=== PATIENT | female | born 1995 | race Caucasian/White ===

== ENCOUNTER 2016-07-25 04:58 | Emergency (ER) | payer BC ==
[~2016-07-25] VITALS: Ht 160 cm; Wt 67.8 kg
[~2016-07-25 04:58] MED LIST: BCPILLS PO
[2016-07-25 05:01] VITALS: TEMP 36.8; Ht 160 cm; Wt 67.8 kg
[2016-07-25] MEDS ORDERED: ONDANSETRON INJ 2 MG/ML 2 ML VIAL IV STA (05:12)
[2016-07-25] MEDS ORDERED: SODIUM CHLORIDE 0.9% 1000ML 1,000 ML IV STA ×2 (05:12→07:10)
[2016-07-25] MEDS ORDERED: MoRPHine SULFATE 10 MG/ML CARP/VIAL IV STA (05:12)
--- NOTE | 2016-07-25 05:21 | EMERGENCY ROOM VISIT NOTE ---
History Report prepared by Chon: Ofelia Roche Under the Supervision of: Dr. Darrin Pascual M.D. First contact with patient: 05:05 Chief Complaint: ABDOMINAL PAIN Stated Complaint: ABD PAIN Nursing Triage Summary: Pt complains of lower abdominal pain since 6pm. +nausea History of Present Illness The patient is a 21 year old female who presents to the Emergency Room with complaints of persistent suprapubic abdominal pain that began around 1800 yesterday. She currently rates her discomfort as a 7/10 in severity. The patient states that all day yesterday she had experienced nausea intermittently , but denies any vomiting. She states that she works at the [employer] and denies any exposure to odd chemicals. The patient denies any burning with urination. She states that her last menstrual cycle was last week. The patient states that she has a NuvaRing but states that she took it out because she was unsure if that was causing her discomfort. She states that her pain is worsened with palpation to the area. The patient notes a history of endometriosis, but denies her discomfort feeling similar to her symptoms with endometriosis. Source of History: patient Onset: 1800 yesterday Position: abdomen (suprapubic) Symptom Intensity: 7/10 Timing: other (persistent) Associated Symptoms: + nausea, No urinary symptoms, No vomiting Review of Systems See HPI for pertinent positives & negatives. A total of 10 systems reviewed and were otherwise negative. Past Medical & Surgical Medical Problems: (1) Endometriosis Surgical Problems: (1) S/P wisdom tooth extraction Family History No pertinent family history stated. Social History Smoking Status: Never Smoker Drug Use: none Marital Status: single Occupation Status: [employer] student Current/Historical Medications No Active Prescriptions or Reported Meds Allergies Coded Allergies: No Known Allergies (Unverified , 07/25/16) Physical Exam Vital Signs Date Time Temp Pulse Resp B/P Pulse Ox O2 Delivery O2 Flow Rate FiO2 07/25/16 07:12 108 20 118/68 100 Room Air 07/25/16 05:01 36.8 118 16 121/83 99 Room Air Physical Exam GENERAL: Patient is in moderate distress, uncomfortable appearing. HEENT: No acute trauma, normocephalic atraumatic, mucous membranes moist, no nasal congestion, no scleral icterus. NECK: No stridor, no adenopathy, no meningismus, trachea is midline. LUNGS: No dyspnea. Clear to auscultation and equal bilaterally. No wheeze, no rhonchi. HEART: Tachycardic rate and regular rhythm. No murmurs, rubs, gallops appreciated. ABDOMEN: Moderate right suprapubic tenderness to palpation, left suprapubic tenderness to palpation. Soft, bowel sounds positive, no masses appreciated, no peritonitis. BACK: No midline tenderness, no CVA tenderness EXTREMITIES: Normal motion all extremities, no cyanosis, no edema. NEUROLOGIC: Alert and oriented, no acute motor or sensory deficits, no focal weakness, cranial nerves grossly intact. SKIN: No rash, no jaundice, no diaphoresis. Medical Decision & Procedures Laboratory Results 07/25/16 05:20 Red Blood Count 4.66, Mean Corpuscular Volume 93.6, Mean Corpuscular Hemoglobin 32.8, Mean Corpuscular Hemoglobin Concent 35.1, Mean Platelet Volume 10.4, Neutrophils (%) (Auto) 79.6, Lymphocytes (%) (Auto) 13.6, Monocytes (%) (Auto) 5.9, Eosinophils (%) (Auto) 0.4, Basophils (%) (Auto) 0.1, Neutrophils # (Auto) 10.98, Lymphocytes # (Auto) 1.88, Monocytes # (Auto) 0.81, Eosinophils # (Auto) 0.06, Basophils # (Auto) 0.02 07/25/16 05:20 Test 07/25/16 05:10 07/25/16 05:12 07/25/16 05:20 Urine Color YELLOW Urine Appearance CLOUDY (CLEAR) Urine pH 6.5 (4.5-7.5) Urine Specific [place] 1.025 (1.000-1.030) Urine Protein NEG (NEG) Urine Glucose (UA) NEG (NEG) Urine Ketones TRACE (NEG) Urine Occult Blood TRACE (NEG) Urine Nitrite NEG (NEG) Urine Bilirubin NEG (NEG) Urine Urobilinogen NEG (NEG) Urine Leukocyte Esterase LARGE (NEG) Urine WBC (Auto) >30 /hpf (0-5) Urine RBC (Auto) 0-4 /hpf (0-4) Urine Hyaline Casts (Auto) 1-5 /lpf (0-5) Urine Epithelial Cells (Auto) >30 /lpf (0-5) Urine Bacteria (Auto) 1+ (NEG) Urine Test NEG (NEG) White Blood Count 13.80 K/uL (4.8-10.8) Red Blood Count 4.66 M/uL (4.2-5.4) Hemoglobin 15.3 g/dL (12.0-16.0) Hematocrit 43.6 % (37-47) Mean Corpuscular Volume 93.6 fL (80-100) Mean Corpuscular Hemoglobin 32.8 pg (25-34) Mean Corpuscular Hemoglobin Concent 35.1 g/dl (32-36) Platelet Count 269 K/uL (130-400) Mean Platelet Volume 10.4 fL (7.4-10.4) Neutrophils (%) (Auto) 79.6 % Lymphocytes (%) (Auto) 13.6 % Monocytes (%) (Auto) 5.9 % Eosinophils (%) (Auto) 0.4 % Basophils (%) (Auto) 0.1 % Neutrophils # (Auto) 10.98 K/uL (1.4-6.5) Lymphocytes # (Auto) 1.88 K/uL (1.2-3.4) Monocytes # (Auto) 0.81 K/uL (0.11-0.59) Eosinophils # (Auto) 0.06 K/uL (0-0.5) Basophils # (Auto) 0.02 K/uL (0-0.2) RDW Standard Deviation 42.8 fL (36.4-46.3) RDW Coefficient of Variation 12.6 % (11.5-14.5) Immature Granulocyte % (Auto) 0.4 % Immature Granulocyte # (Auto) 0.05 K/uL (0.00-0.02) Anion Gap 10.0 mmol/L (3-11) Est Creatinine Clear Calc Drug Dose 96.3 ml/min Estimated GFR () 113.5 Estimated GFR (Non- 98.0 BUN/Creatinine Ratio 12.9 (10-20) Calcium Level 9.3 mg/dl (8.5-10.1) Total Bilirubin 0.6 mg/dl (0.2-1) Direct Bilirubin 0.1 mg/dl (0-0.2) Aspartate Amino Transf (AST/SGOT) 11 U/L (15-37) Alanine Aminotransferase (ALT/SGPT) 20 U/L (12-78) Alkaline Phosphatase 51 U/L (45-117) Total Protein 8.2 gm/dl (6.4-8.2) Albumin 3.9 gm/dl (3.4-5.0) Lipase 106 U/L (73-393) Laboratory results as reviewed by me. Medications Administered Medications (Trade) Dose Ordered Sig/Angelica Route Start Time Stop Time Status Last Admin Dose Admin Morphine Sulfate (MoRPHine SULFATE INJ) 6 mg NOW STAT IV 07/25/16 05:12 07/25/16 05:13 DC 07/25/16 05:19 6 MG Ondansetron HCl 4 mg 4 mg NOW STAT IV 07/25/16 05:12 07/25/16 05:13 DC 07/25/16 05:19 4 MG Sodium Chloride (Nss 1000ml) 1,000 ml @ 999 mls/hr Q1H1M STAT IV 07/25/16 05:12 07/25/16 06:12 DC 07/25/16 05:12 999 MLS/HR Hydromorphone HCl 1 mg 1 mg NOW STAT IV 07/25/16 07:10 07/25/16 07:12 DC 07/25/16 07:18 1 MG Sodium Chloride (Nss 1000ml) 1,000 ml @ 75 mls/hr [id number] STAT IV 07/25/16 07:10 07/25/16 20:29 07/25/16 07:18 75 MLS/HR ED Course 0507: The patient was evaluated in room A12B. A complete history and physical exam was performed. 0512: Ordered Sodium Chloride 1000 ml @ 999 mls/hr IV, Zofran Inj 4 mg IV, Morphine Sulfate 6 mg IV. 0710: I reevaluated the patient and her pain is increasing. I discussed the pros and cons of CT scans and she would like to go ahead with a CT scan. Ordered Sodium Chloride 1000 ml @ 75 mls/hr IV, Dilaudid Inj 1 mg IV. 0715: Ordered Dilaudid Inj 1 mg IV, Zofran Inj 4 mg IV. 0730: The patient was signed out to Dr. Mackenzie at change of shift. Medical Decision Differential: Appendicitis, Ovarian Torsion, PID, Tubo-ovarian Abscess, Intrauterine , Ectopic , Endometriosis, amongst other pathologies entertained. 21 yr old female arrives with acute R>L suprapubic pain. Quite tender to palpation. US unable to see appendix. Ovaries look OK. She has elevated wbc and with continued pain and unable to rule out appy felt CT reasonable. CT w po /iv contrast given age and bmi. She was kept comfortable and rehydrated. UA questionable UTI though symptoms not very much consistent with this. Signed out to Dr Mackenzie awaiting CT results. Impression Primary Impression: Right lower quadrant abdominal pain Scribe Attestation The scribe's documentation has been prepared under my direction and personally reviewed by me in its entirety. I confirm that the note above accurately reflects all work, treatment, procedures, and medical decision making performed by me. Departure Information Dispostion Still a Patient Prescriptions No Active Prescriptions or Reported Meds Referrals [facility] (PCP)
[2016-07-25 05:40] LABS: BASO % 0.1 %; BASO ABS # 0.02 K/uL (0-0.2); COMPLETE YES; EOS % 0.4 %; HEMATOCRIT 43.6 % (37-47); IG% 0.4 %; LYMPH % 13.6 %; LYMPH ABS # 1.88 K/uL (1.2-3.4); MEAN CELL VOLUME 93.6 fL (80-100); MEAN CORPUSCULAR HEMOGLOBIN 32.8 pg (25-34); MEAN CORPUSCULAR HGB CONC 35.1 g/dl (32-36); MEAN PLATELET VOLUME 10.4 fL (7.4-10.4); MONO % 5.9 %; NEUT % 79.6 %; PLATELET COUNT 269 K/uL (130-400); RED BLOOD COUNT 4.66 M/uL (4.2-5.4)
[2016-07-25 06:02] LABS: BUN/CREATININE RATIO 12.9 (10-20); CALCIUM 9.3 mg/dl (8.5-10.1); CREATININE 0.84 mg/dl (0.60-1.20); POTASSIUM 3.8 mmol/L (3.5-5.1)
[2016-07-25 06:04] LABS: MANUAL MICROSCOPIC REQUIRED? NO; REVIEW REQ? NO; URINE APPEARANCE CLOUDY (CLEAR); URINE BILIRUBIN NEG (NEG); URINE COLOR YELLOW; URINE EPITHELIAL CELL AUTO >30 /lpf (0-5); URINE NITRITE NEG (NEG); URINE PH 6.5 (4.5-7.5); URINE SPECIFIC GRAVITY 1.025 (1.000-1.030); UROBILINOGEN NEG (NEG); ZZUR CULT IF INDIC CLEAN CATCH YES
[2016-07-25] MEDS ORDERED: HYDROmorphone INJ 1 MG/ML SYR IV STA (07:10)
--- NOTE | 2016-07-25 07:14 | DIAGNOSTIC IMAGING REPORT ---
ULTRASOUND OF THE APPENDIX CLINICAL HISTORY: Right lower quadrant abdominal pain. COMPARISON STUDY: No priors. FINDINGS: Real-time, grayscale, and color flow sonography of the right lower quadrant was performed to assess for acute appendicitis. The appendix was not discretely visualized. No inflammatory changes or free fluid are seen in the right lower quadrant. No lymphadenopathy was seen. Fluid-filled bowel loops are noted in the right lower quadrant. IMPRESSION: Nonvisualization of the appendix. Note that this does not exclude acute appendicitis. Electronically signed by: Anthony Richmond M.D. 07/25/2016 7:13 AM Dictated Date/Time: 07/25/2016 7:12 AM
[2016-07-25] MEDS ORDERED: ONDANSETRON INJ 2 MG/ML 2 ML VIAL IV PRN (07:15)
[2016-07-25] MEDS ORDERED: HYDROmorphone INJ 1 MG/ML SYR IV PRN (07:15)
--- NOTE | 2016-07-25 07:16 | DIAGNOSTIC IMAGING REPORT ---
ULTRASOUND OF THE PELVIS CLINICAL HISTORY: Right pelvic pain. COMPARISON STUDY: No priors. TECHNIQUE: Real-time, grayscale, and color flow sonography of the pelvis is performed both transabdominally and endovaginally. Images are reviewed in the transverse and longitudinal planes. FINDINGS: Uterus: The uterus is normal in size and echotexture, measuring 7.4 x 2.8 x 3.4 cm. A nabothian cyst is incidentally noted in the cervix. Endometrium: The endometrium is normal in appearance, and the endometrial stripe is normal in thickness measuring up to 0.1 cm. Ovaries: The ovaries are normal in size and morphology. The right ovary measures 2.4 x 1.2 x 3.0 cm and the left ovary measures 1.5 x 1.5 x 2.3 cm. Small follicles are seen bilaterally. Normal Doppler waveforms are shown within both ovaries. Pelvis: There is trace free fluid in the cul-de-sac. No concerning adnexal lesion is seen. IMPRESSION: 1. No acute sonographic abnormality is identified in the pelvis. 2. There is trace free fluid in the cul-de-sac, likely within physiologic limits. Electronically signed by: Anthony Richmond M.D. 07/25/2016 7:15 AM Dictated Date/Time: 07/25/2016 7:13 AM
[2016-07-25] MEDS ORDERED: OPTIRAY 320 IV PRN (07:45)
--- NOTE | 2016-07-25 10:37 | DIAGNOSTIC IMAGING REPORT ---
CT SCAN OF THE ABDOMEN AND PELVIS WITH IV CONTRAST CLINICAL HISTORY: Right lower quadrant abdominal pain. COMPARISON STUDY: Pelvic ultrasound dated 07/25/16. TECHNIQUE: Following the IV administration of 119 cc of Optiray 320, CT scan of the abdomen and pelvis is performed from the lung bases to the proximal femora. Images are reviewed in the axial, sagittal, and coronal planes. IV contrast was administered without complication. Automated dose control exposure was utilized. CT DOSE: 396.02 mGy.cm FINDINGS: Lung bases: The heart is normal in size and without pericardial effusion. The lung bases are clear. Liver: The contrast-enhanced liver is normal in size, contour, and attenuation. There is no intrahepatic biliary ductal dilatation. The hepatic veins and portal veins are patent. Gallbladder: Unremarkable. Spleen: Normal in size and attenuation. Pancreas: Unremarkable. Adrenal glands: Unremarkable. Kidneys: The contrast enhanced kidneys are normal in size and without hydronephrosis. The kidneys enhance symmetrically. Abdominal vasculature: The abdominal aorta is normal in course and caliber. Bowel: The small bowel and colon are normal in course and caliber. The appendix is well-visualized and normal. Peritoneum: There is no intraperitoneal free air or abdominal ascites. There is a small fat-containing umbilical hernia. Lymphadenopathy: None. Pelvic viscera: The bladder, uterus, and adnexa are normal as visualized. There are bilateral ovarian follicles. Trace free fluid is seen in the cul-de-sac. There is nonspecific stranding identified within the pelvic fat, greatest around the cervical region. Skeletal structures: No lytic or blastic lesions are seen. IMPRESSION: 1. There is nonspecific induration and stranding throughout the deep pelvic fat, which could be seen in the setting of pelvic inflammatory disease. Clinical correlation will be required. There is no evidence of abscess. 2. No additional infectious or inflammatory findings are identified. The appendix is well-visualized and normal. Findings were discussed with Dr. Husain in the emergency department at the time of interpretation. Electronically signed by: Anthony Richmond M.D. 07/25/2016 10:36 AM Dictated Date/Time: 07/25/2016 10:29 AM
[2016-07-25] MEDS ORDERED: CEFTRIAXONE SOD INJ 1 GM ADDVIAL IV STA (11:15)
[2016-07-25] MEDS ORDERED: DOXYCYCLINE HYCLATE 100 MG CAP PO STA (11:15)
[2016-07-25] MEDS ORDERED: OXYC1TAB3 PO (12:04)
[2016-07-25] MEDS ORDERED: DOXY100C2 PO (12:04)
[2016-07-25 13:06] VITALS: BP 118/70; PULSE 117; O2SAT 98
--- NOTE | 2016-07-25 15:50 | EMERGENCY ROOM VISIT NOTE ---
ED Visit Note This patient was signed out to me by Dr. Pascual at shift change. At that point, a CAT scan was pending rule out appendicitis and evaluated patient. she was comfortable that she has moderate tenderness mostly centrally in the lower abdomen and shows an elevated white count. I did a call from the radiologist who feels her appendix is normal and she has findings which she feels could be consistent with PID. In light of this, I did do a pelvic exam in the presence of a female nurse senior loan processor. She does have a moderate amount of yellowish discharge. She does seem to have cervical motion tenderness when the speculum was inserted in light of this and will treat her for PID. She was given Rocephin 1 g IV as well as doxycycline 100 mg by mouth here she was sent home with a prescription for doxycycline 100 mg twice a day for 14 days for pain .she can use OxyIR 5 mg, one or 2 pills every 4-6 hours as needed. She was warned that this could make her drowsy and do not take before drinking, driving , working. He feels up to going home. I encourage her return over the weekend if: increasing pain, worsening of symptoms, not tolerating fluids, any concerns. I also recommended close [facility] with [facility] on Thursday for recheck. She is happy with the plan and discharged to home.
[2016-07-27 02:49] LABS: CHLAMYDIA TRACH RNA*** NOT DETECTED (NOT DETECTED); GC (NEIS GONORRHOEAE)RNA** DETECTED (NOT DETECTED)
== END 2016-07-25 13:07 | disposition home or self-care (01) ==
LOC: C.EDB 04:59 → C.EDA 13:07
DX: N73.9 Female pelvic inflammatory disease, unspecified (principal); D72.829 Elevated white blood cell count, unspecified

== ENCOUNTER 2016-12-14 13:16 | Emergency (ER) | payer BC ==
[~2016-12-14] VITALS: Ht 160 cm; Wt 72.3 kg
[~2016-12-14 13:16] MED LIST changes: -BCPILLS PO; +DOXY100C2 PO; +OXYC1TAB3 PO
[2016-12-14 13:19] VITALS: TEMP 36.8; Ht 160 cm; Wt 72.3 kg
[2016-12-14] MEDS ORDERED: LAMO25TA PO (14:04)
[2016-12-14] MEDS ORDERED: BCPILLS PO (14:04)
[2016-12-14 14:10] LABS: BASO % 0.6 %; BASO ABS # 0.04 K/uL (0-0.2); EOS % 2.3 %; HEMATOCRIT 40.8 % (37-47); IG% 0.2 %; LYMPH % 33.1 %; LYMPH ABS # 2.12 K/uL (1.2-3.4); MEAN CELL VOLUME 95.6 fL (80-100); MEAN CORPUSCULAR HEMOGLOBIN 33.3 pg (25-34); MEAN CORPUSCULAR HGB CONC 34.8 g/dl (32-36); MEAN PLATELET VOLUME 10.3 fL (7.4-10.4); MONO % 10.1 %; NEUT % 53.7 %; PLATELET COUNT 278 K/uL (130-400); RED BLOOD COUNT 4.27 M/uL (4.2-5.4); WHITE BLOOD COUNT 6.41 K/uL (4.8-10.8)
[2016-12-14 14:28] LABS: ALT/SGPT 22 U/L (12-78); BLOOD UREA NITROGEN 8 mg/dl (7-18); BUN/CREATININE RATIO 9.1 (10-20); CALCIUM 8.6 mg/dl (8.5-10.1); CARBON DIOXIDE 27 mmol/L (21-32); CHLORIDE 106 mmol/L (98-107); CREATININE 0.85 mg/dl (0.60-1.20); GLUCOSE 70 mg/dl (70-99); POTASSIUM 3.8 mmol/L (3.5-5.1); SODIUM 141 mmol/L (136-145)
[2016-12-14 14:31] LABS: ALKALINE PHOSPHATASE 41 U/L (45-117); AST/SGOT 15 U/L (15-37)
[2016-12-14 14:54] LABS: COMPLETE YES
[2016-12-14 15:22] LABS: URINE APPEARANCE CLEAR (CLEAR); URINE BILIRUBIN NEG (NEG); URINE COLOR YELLOW; URINE NITRITE NEG (NEG); UROBILINOGEN NEG (NEG); ZZUR CULT IF INDIC CLEAN CATCH YES
[2016-12-14 15:26] LABS: MANUAL MICROSCOPIC REQUIRED? NO; REVIEW REQ? NO; SULFASALICYLIC ACID POS (NEG)
[2016-12-14] MEDS ORDERED: CEPH500C PO (16:17)
[2016-12-14 16:23] VITALS: BP 120/77; PULSE 70; O2SAT 100
[2016-12-14] MEDS ORDERED: CEPHALEXIN MONOHYDRATE 250 MG CAP PO ONE (16:30)
--- NOTE | 2016-12-14 18:03 | EMERGENCY ROOM VISIT NOTE ---
History Report prepared by Chon: Danielle Ascencio Under the Supervision of: Dr. Theo Gonzales D.O. First contact with patient: 13:37 Chief Complaint: ED VAG BLEEDING Stated Complaint: MENSTRUAL BLEEDING X 22 DAYS History of Present Illness The patient is a 21 year old female who presents to the Emergency Room with complaints of constant vaginal bleeding beginning 25 days ago. The patient states that she switched her control about 3 weeks ago after having nausea on her previous control, 30mg Apri. She reports that she had her period 4 weeks ago and when she switched her control she has continued to bleed though. She notes that she has 3 pills left to take in the pack. The patient states that she has been going through about 2 pads a day and cannot use tampons because she feels like she has a UTI. She notes a history of UTIs, chlamydia, and endometriosis. She reports that she is sexually active. The patient complains of pain with urination. Pt denies headache, fevers, chest pain , shortness of breath, nausea, vomiting, diarrhea, pain with urination, vaginal discharge. She reports that she told her primary care doctor about the bleeding but he is out for the week. Source of History: patient Onset: 25 days ago Position: other (vaginal) Symptom Intensity: 2 pads a day Quality: other (bleeding) Timing: constant Associated Symptoms: + urinary symptoms, No fevers, No headache, No chest pain, No SOB, No nausea, No vomiting, No diarrhea Note: Pt denies any vaginal discharge. Review of Systems See HPI for pertinent positives & negatives. A total of 10 systems reviewed and were otherwise negative. Past Medical & Surgical Medical Problems: (1) Endometriosis Surgical Problems: (1) S/P wisdom tooth extraction Family History No pertinent family history stated. Social History Smoking Status: Never Smoker Drug Use: none Marital Status: single Housing Status: lives with roommate Occupation Status: [employer] student Current/Historical Medications Scheduled Control Pills ( Control Pills), 1 TAB PO DAILY Cephalexin Monohydrate (Keflex), 500 MG PO QID Lamotrigine (Lamictal), 25 MG PO HS Allergies Coded Allergies: No Known Allergies (Unverified , 07/25/16) Physical Exam Vital Signs Date Time Temp Pulse Resp B/P (MAP) Pulse Ox O2 Delivery O2 Flow Rate FiO2 12/14/16 16:23 70 16 120/77 100 6/25/17 15:12 73 15 118/65 100 Room Air 12/14/16 13:19 36.8 87 18 120/76 100 Room Air Physical Exam GENERAL: sitting up in bed, alert, well appearing, well nourished, no distress, non-toxic EYE EXAM: normal conjunctiva OROPHARYNX: no exudate, no erythema, lips, buccal mucosa, and tongue normal and mucous membranes are moist NECK: supple, no nuchal rigidity, no adenopathy, non-tender LUNGS: Clear to auscultation. Normal chest wall mechanics HEART: no murmurs, S1 normal and S2 normal ABDOMEN: abdomen soft, non-tender, normo-active bowel sounds, no masses, no rebound or guarding. BACK: Back is symmetrical on inspection and there is no deformity, no midline tenderness, no CVA tenderness. SKIN: no rashes and no bruising UPPER EXTREMITIES: upper extremities are grossly normal. LOWER EXTREMITIES: No pitting edema. NEURO EXAM: Normal sensorium, cranial nerves II-XII grossly intact, normal speech, no gross weakness of arms, no gross weakness of legs. : Normal external vaginal mucosa with small amount of dried blood in the vault , no current bleeding, unable to visualize the cervix secondary to discomfort. Normal eternal genitalia Medical Decision & Procedures Laboratory Results 12/14/16 13:55 Red Blood Count 4.27, Mean Corpuscular Volume 95.6, Mean Corpuscular Hemoglobin 33.3, Mean Corpuscular Hemoglobin Concent 34.8, Mean Platelet Volume 10.3, Neutrophils (%) (Auto) 53.7, Lymphocytes (%) (Auto) 33.1, Monocytes (%) (Auto) 10.1, Eosinophils (%) (Auto) 2.3, Basophils (%) (Auto) 0.6, Neutrophils # (Auto ) 3.44, Lymphocytes # (Auto) 2.12, Monocytes # (Auto) 0.65, Eosinophils # (Auto ) 0.15, Basophils # (Auto) 0.04 12/14/16 13:55 Test 12/14/16 13:55 12/14/16 15:03 White Blood Count 6.41 K/uL (4.8-10.8) Red Blood Count 4.27 M/uL (4.2-5.4) Hemoglobin 14.2 g/dL (12.0-16.0) Hematocrit 40.8 % (37-47) Mean Corpuscular Volume 95.6 fL (80-100) Mean Corpuscular Hemoglobin 33.3 pg (25-34) Mean Corpuscular Hemoglobin Concent 34.8 g/dl (32-36) Platelet Count 278 K/uL (130-400) Mean Platelet Volume 10.3 fL (7.4-10.4) Neutrophils (%) (Auto) 53.7 % Lymphocytes (%) (Auto) 33.1 % Monocytes (%) (Auto) 10.1 % Eosinophils (%) (Auto) 2.3 % Basophils (%) (Auto) 0.6 % Neutrophils # (Auto) 3.44 K/uL (1.4-6.5) Lymphocytes # (Auto) 2.12 K/uL (1.2-3.4) Monocytes # (Auto) 0.65 K/uL (0.11-0.59) Eosinophils # (Auto) 0.15 K/uL (0-0.5) Basophils # (Auto) 0.04 K/uL (0-0.2) RDW Standard Deviation 47.5 fL (36.4-46.3) RDW Coefficient of Variation 13.6 % (11.5-14.5) Immature Granulocyte % (Auto) 0.2 % Immature Granulocyte # (Auto) 0.01 K/uL (0.00-0.02) Red Blood Cell Morphology Unremarkable Anion Gap 8.0 mmol/L (3-11) Est Creatinine Clear Calc Drug Dose 98.1 ml/min Estimated GFR () 111.9 Estimated GFR (Non- 96.6 BUN/Creatinine Ratio 9.1 (10-20) Calcium Level 8.6 mg/dl (8.5-10.1) Total Bilirubin 0.3 mg/dl (0.2-1) Direct Bilirubin < 0.1 mg/dl (0-0.2) Aspartate Amino Transf (AST/SGOT) 15 U/L (15-37) Alanine Aminotransferase (ALT/SGPT) 22 U/L (12-78) Alkaline Phosphatase 41 U/L (45-117) Total Protein 7.7 gm/dl (6.4-8.2) Albumin 3.7 gm/dl (3.4-5.0) Lipase 122 U/L (73-393) Urine Color YELLOW Urine Appearance CLEAR (CLEAR) Urine pH 8.0 (4.5-7.5) Urine Specific [place] 1.020 (1.000-1.030) Urine Protein 2+ (NEG) Urine Glucose (UA) NEG (NEG) Urine Ketones NEG (NEG) Urine Occult Blood 3+ (NEG) Urine Nitrite NEG (NEG) Urine Bilirubin NEG (NEG) Urine Urobilinogen NEG (NEG) Urine Leukocyte Esterase SMALL (NEG) Urine WBC (Auto) >30 /hpf (0-5) Urine RBC (Auto) >30 /hpf (0-4) Urine Hyaline Casts (Auto) 10-30 /lpf (0-5) Urine Epithelial Cells (Auto) 10-20 /lpf (0-5) Urine Bacteria (Auto) NEG (NEG) Urine Test NEG (NEG) Laboratory results per my review. Medications Administered Medications (Trade) Dose Ordered Sig/Angelica Route Start Time Stop Time Status Last Admin Dose Admin Cephalexin Monohydrate (Keflex Cap) 500 mg NOW ONCE PO 12/14/16 16:30 12/14/16 16:31 DC 12/14/16 16:22 500 MG ED Course ED COURSE: Vital signs were reviewed and normal The patients medical record was reviewed The above diagnostic studies were performed and reviewed. ED treatments and interventions as stated above. 1337: The patient was evaluated in room C9. A complete history and physical examination was performed. 1608: I spoke to Dr. Gooden of [facility]. He recommended follow up with PCP on Thursday. 1618: Upon reevaluation, the patient is doing well.I discussed my findings with the patient and she understands and agrees with the treatment plan. Based on the patients age, coexisting illnesses, exam and lab findings the decision to treat as an outpatient was made. The patient remained stable while under my care. The patient appeared well at the time of discharge. Medical Decision Differential diagnoses includes but is not limited to appendicitis, diverticulitis, small bowel obstruction, malignancy, hernia, urinary tract infection, torsion, and ectopic , perforation, trauma, infectious. Medication Reconciliation: I attest that I have personally reviewed the patient' s current medication list. Blood pressure screening: Patient was found to have normal blood pressure on screening and does not require follow-up. Patient is a 21-year-old female who presents the ER for vaginal bleeding that has been present for the past month. She recently switched controls and has been having bleeding course the past month. Labs show a hemoglobin of 14. BMP along with bilirubin, lipase and LFTs was unremarkable. UA was contaminated with multiple epithelial cells. She did complain of increased urinary frequency, urgency and dysuria. She was treated for UTI. Urine was negative. She has no abdominal pain on my exam. Discussed case with Dr. Gooden and he agrees with having the patient follow-up on Thursday with her prescribing host hostess at [facility]. Discussed with Pt concerning signs and symptoms to watch out for. Pt was instructed to follow up with their PCP and discussed with the patient their option to return to the ED at anytime for persistent or worsening symptoms. The appropriate anticipatory guidance and out- patient management, including indications for return to the emergency department , were explained at length to the patient and understood. Consults Time Called: 1605 Consulting Physician: Dr. Gooden - [facility] Returned Call: [address] Gooden of [facility]. He recommended follow up with PCP on Thursday. Impression Primary Impression: Dysfunctional uterine bleeding Additional Impression: UTI (urinary tract infection) Scribe Attestation The scribe's documentation has been prepared under my direction and personally reviewed by me in its entirety. I confirm that the note above accurately reflects all work, treatment, procedures, and medical decision making performed by me. Departure Information Dispostion Home / Self-Care Prescriptions Cephalexin Monohydrate (Keflex) 500 Mg Cap 500 MG PO QID, #32 CAP Prov: Theo Gonzales, DO 12/14/16 Referrals No Doctor, Assigned (PCP) Forms HOME CARE DOCUMENTATION FORM, IMPORTANT VISIT INFORMATION, WORK / SCHOOL INSTRUCTIONS Patient Instructions ED Bleed Irregular Vaginal, My [facility] [employer] Additional Instructions Please follow up with your primary care doctor with in the next 24 hours. Any worsening of your symptoms, please return to the ED immediately. This includes going through more than 1 pad an hour, feeling lightheaded, dizzy, pain, new or a change vaginal discharge, or any other concerning signs or symptoms from your standpoint. Please follow up with your [facility] host hostess within 24-48 hours. Problem Qualifiers Additional Impression: UTI (urinary tract infection) Urinary tract infection type: acute cystitis Hematuria presence: with hematuria Qualified Codes: N30.01 - Acute cystitis with hematuria
== END 2016-12-14 16:26 | disposition home or self-care (01) ==
LOC: C.EDB 13:19 → C.EDC 16:26
DX: N93.8 Other specified abnormal uterine and vaginal bleeding (principal); N30.01 Acute cystitis with hematuria; N80.9 Endometriosis, unspecified; Z87.440 Personal history of urinary (tract) infections; Z98.818 Other dental procedure status

== ENCOUNTER 2017-05-08 12:20 | Emergency (ER) | payer BC ==
[~2017-05-08] VITALS: Ht 160 cm; Wt 73.6 kg
[~2017-05-08 12:20] MED LIST changes: +BCPILLS PO; +CEPH500C PO; -DOXY100C2 PO; +LAMO25TA PO; -OXYC1TAB3 PO
[2017-05-08 12:25] VITALS: TEMP 36.8; Ht 160 cm; Wt 73.6 kg
[2017-05-08] MEDS ORDERED: SERT-234 PO (13:01)
--- NOTE | 2017-05-08 14:13 | DIAGNOSTIC IMAGING REPORT ---
CHEST 2 VIEWS ROUTINE HISTORY: 21 years-old Female PRODUCTIVE COUGH acute productive cough COMPARISON: None available TECHNIQUE: 2 views of the chest FINDINGS: Cardiomediastinal and hilar silhouettes are within normal limits. No pneumothorax, pleural effusion, focal airspace consolidation or overt pulmonary edema. The bones of the chest are grossly intact. IMPRESSION: No acute cardiopulmonary process. The above report was generated using voice recognition software. It may contain grammatical, syntax or spelling errors. Electronically signed by: Jarad Guillory M.D. 05/08/2017 2:12 PM Dictated Date/Time: 05/08/2017 2:08 PM
[2017-05-08] MEDS ORDERED: ALBUTEROL HFA 8 GM INHALER INH ONE (14:45)
[2017-05-08] MEDS ORDERED: PRED50TA PO (14:50)
[2017-05-08] MEDS ORDERED: AZITTAB PO (14:50)
--- NOTE | 2017-05-08 14:53 | EMERGENCY ROOM VISIT NOTE ---
ED Visit Note First contact with patient: 12:30 CHIEF COMPLAINT: Cough and upper respiratory symptoms 3 weeks HISTORY OF PRESENT ILLNESS: Patient is a 21-year-old white female who presents to the emergency department for evaluation of upper respiratory symptoms that have been present and progressively getting worse over the last 3 weeks. Her symptoms started about 3 weeks ago with a sore throat, that resolved on its own. One week ago, she then had a roughly 24 hour period of subjective fever and chills and body and muscle aches. She took acetaminophen for this, and felt better the following morning. She then developed sinus and nasal congestion and a cough that is mostly nonproductive. She notes a mild generalized headache, fatigue, and bilateral rib pain. She tried using over-the -counter medications including a saline spray, without relief. She has not had any further fevers. She denies any chest pain. Cough is worse at night, and first thing in the morning when she wakes up. 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 She does not smoke. She denies any shortness of breath. REVIEW OF SYSTEMS: Review of systems as per HPI. All other systems reviewed were negative. 10 systems reviewed. PMH: Electronic medical records are reviewed and summarized as above/below. See Problem List. SOCIAL HISTORY: Patient lives at home. Nonsmoker. She is employed. PHYSICAL EXAM: Vital Signs: Reviewed Nurse's notes. MENTAL STATUS: Patient is a well-appearing 21-year-old white female who is awake and alert and in no acute distress. Vital signs are stable. Oxygen saturation is 97% on room air. No coughing noted during the entire history or physical exam. HEAD: Atraumatic, without temporal or scalp tenderness. EYES: PERRL, EOMI, no discharge or injection. EARS: Tympanic membranes intact, not inflamed, have normal contour. External canals clear. NOSE: Nares patent, turbinates moist without rhinorrhea. MOUTH: Mucous membranes moist, no lesions, tongue and gums appear normal. THROAT: No pharyngeal injection, exudates, or tonsillar hypertrophy. Airway is patent. NECK: Supple, nontender, no lymphadenopathy. HEART: Regular rate and rhythm without murmurs, ectopy, gallops, or rubs. LUNGS: Clear to auscultation and breath sounds equal, no wheezes, rales, or rhonchi. SKIN: Normal. NEUROLOGICAL: Sensory and motor functions grossly intact. Normal gait. EMERGENCY DEPARTMENT COURSE: Chest x-ray was obtained and was unremarkable. Conservative care measures were discussed. She's had upper respiratory symptoms for about a week. She reports a fairly persistent cough however no coughing is noted during her entire ED visit with the provider is in the room. There is no increased work of breathing or respiratory distress. No further fevers. I suspect her illness is still likely viral at this point, particularly given the negative chest x-ray. She was given an albuterol inhaler with a spacer. She was also placed on a short course of oral prednisone. She can continue using [id number] medications for symptomatic care. If her symptoms are not improving in the next week, she was provided a prescription for a Z-Matthew that she can fill and take. Differential diagnoses include upper respiratory illness, postnasal drip, sinusitis, pharyngitis, bronchitis, pneumonia, among others. Medication reconciliation: I attest that I have personally reviewed the patient' s current medication list. Blood pressure screening : Patient was found to have normal blood pressure on screening and does not require follow-up. CHEST 2 VIEWS ROUTINE HISTORY: 21 years-old Female PRODUCTIVE COUGH acute productive cough COMPARISON: None available TECHNIQUE: 2 views of the chest FINDINGS: Cardiomediastinal and hilar silhouettes are within normal limits. No pneumothorax, pleural effusion, focal airspace consolidation or overt pulmonary edema. The bones of the chest are grossly intact. IMPRESSION: No acute cardiopulmonary process. Problem List Medical Problems: (1) Anxiety Status: Chronic (2) Bipolar disorder Status: Chronic (3) Dysfunctional uterine bleeding Status: Resolved (4) Dysfunctional uterine bleeding Status: Resolved (5) Endometriosis Status: Chronic (6) Facial injury Status: Resolved (7) Head injury Status: Resolved (8) Right lower quadrant abdominal pain Status: Resolved (9) Scalp abrasion Status: Resolved (10) UTI (urinary tract infection) Status: Resolved (11) UTI (urinary tract infection) Status: Resolved Surgical Problems: (1) H/O laparoscopy Status: Resolved (2) S/P wisdom tooth extraction Status: Resolved Current/Historical Medications Scheduled Azithromycin (Zithromax Z-Matthew), 0 PO UD Control Pills ( Control Pills), 1 TAB PO DAILY Lamotrigine (Lamictal), 75 MG PO HS Prednisone (Prednisone), 50 MG PO DAILY Sertraline (Zoloft), 100 MG PO QAM Allergies Coded Allergies: No Known Allergies (Unverified , 05/08/17) Vital Signs Date Time Temp Pulse Resp B/P (MAP) Pulse Ox O2 Delivery O2 Flow Rate FiO2 05/08/17 15:04 65 18 116/62 100 05/08/17 14:31 68 18 116/70 100 Room Air 05/08/17 12:48 Room Air 05/08/17 12:29 97 Room Air 05/08/17 12:25 36.8 88 18 122/77 97 Room Air Laboratory Results Test 05/08/17 13:25 Urine Test NEG (NEG) Medications Administered Medications (Trade) Dose Ordered Sig/Angelica Route Start Time Stop Time Status Last Admin Dose Admin Albuterol (Ventolin Hfa Inhaler) 2 puffs NOW ONCE INH 05/08/17 14:45 05/08/17 14:46 DC 05/08/17 14:58 2 PUFFS Departure Information Impression Primary Impression: Upper respiratory infection Prescriptions Azithromycin (ZITHROMAX Z-MATTHEW) 250 Mg Tab 0 PO UD, #1 PKT 2 TABS DAY 1, THEN 1 TAB DAILY FOR 4 DAYS Prov: Tamar Mckeon PA 05/08/17 Prednisone (Prednisone) 50 Mg Tab 50 MG PO DAILY for 5 Days, #5 TAB Prov: Tamar Mckeon PA 05/08/17 Referrals [facility] (PCP) Patient Instructions [facility] Additional Instructions Acetaminophen(Tylenol) may be used for fever or pain. Use 1000mg every six hours as needed. Avoid using more than 3000mg in a 24 hour period. (AND/OR) Ibuprofen(Motrin, Advil) may be used for fever or pain. Use 600mg every six hours as needed. Take with food. Avoid using more than 2400mg in a 24 hour period. Do not use 2400mg per day for more than three consecutive days without physician direction. Prolonged inappropriate use can lead to stomach upset or ulcers. Pseudoephedrine(Sudaphed): 30-60mg every 6 hours as needed for nasal congestion. Do not take this with other stimulant products or supplements. Guaifenesin (Mucinex) : Take 1200 mg every 12 hours as needed for nasal/chest congestion, to help thin secretions. Albuterol Inhaler: Take 2 puffs every 4 hours for the next 5-7 days, then as needed. Prednisone 50mg: Once daily until the prescription is finished. It is best to take this earlier in the day as some patients note occasional difficulty falling asleep when taken in the late evening. Rest and drink plenty of fluids. Continue current medications. Return to the ER for severe headache, neck stiffness, chest pain, difficulty breathing, fevers, vomiting, worsening of your condition, or as needed. Follow up with your primary physician this week for a recheck of your current condition. If your symptoms are not improving in the next 5-7 days, fill and take the prescription for the Z-Matthew as instructed.
[2017-05-08 15:04] VITALS: BP 116/62; PULSE 65; O2SAT 100
== END 2017-05-08 15:06 | disposition home or self-care (01) ==
LOC: C.EDB 12:23 → C.EDC 15:06
DX: J06.9 Acute upper respiratory infection, unspecified (principal); F41.9 Anxiety disorder, unspecified; F31.9 Bipolar disorder, unspecified; Z87.440 Personal history of urinary (tract) infections; Z79.3 Long term (current) use of hormonal contraceptives; Z79.899 Other long term (current) drug therapy

== ENCOUNTER 2017-06-01 21:25 | Emergency (ER) | payer BC ==
[~2017-06-01] VITALS: Ht 160 cm; Wt 72.1 kg
[~2017-06-01 21:25] MED LIST changes: -CEPH500C PO; +SERT-234 PO
[2017-06-01 21:30] VITALS: BP 124/78; TEMP 36.8; Ht 160 cm; Wt 72.1 kg
[2017-06-01 22:33] LABS: BASO % 0.3 %; BASO ABS # 0.02 K/uL (0-0.2); COMPLETE YES; EOS % 3.6 %; IG% 0.2 %; LYMPH % 34.1 %; LYMPH ABS # 2.27 K/uL (1.2-3.4); MEAN CELL VOLUME 96.5 fL (80-100); MEAN CORPUSCULAR HEMOGLOBIN 32.7 pg (25-34); MEAN CORPUSCULAR HGB CONC 33.8 g/dl (32-36); MEAN PLATELET VOLUME 10.4 fL (7.4-10.4); MONO % 6.5 %; NEUT % 55.3 %; PLATELET COUNT 214 K/uL (130-400); RED BLOOD COUNT 4.04 M/uL (4.2-5.4); WHITE BLOOD COUNT 6.65 K/uL (4.8-10.8)
--- NOTE | 2017-06-01 22:36 | DIAGNOSTIC IMAGING REPORT ---
TWO VIEW CHEST CLINICAL HISTORY: Atypical chest pain. Cough 2 months duration. Dyspnea. FINDINGS: PA and lateral chest radiographs are compared to study dated 05/08/2017. The cardiomediastinal silhouette is unremarkable. The lungs and pleural spaces are clear. There is no pneumothorax. The bony thorax appears intact. Bilateral nipple piercings are noted. IMPRESSION: No active disease in the chest. Electronically signed by: Anthony Richmond M.D. 06/01/2017 10:34 PM Dictated Date/Time: 06/01/2017 10:34 PM
[2017-06-01 22:40] VITALS: O2SAT 92
[2017-06-01 22:50] LABS: ALT/SGPT 21 U/L (12-78); BLOOD UREA NITROGEN 10 mg/dl (7-18); BUN/CREATININE RATIO 12.3 (10-20); CALCIUM 8.7 mg/dl (8.5-10.1); CARBON DIOXIDE 29 mmol/L (21-32); CHLORIDE 105 mmol/L (98-107); CREATININE 0.78 mg/dl (0.60-1.20); GLUCOSE 94 mg/dl (70-99); POTASSIUM 3.6 mmol/L (3.5-5.1); SODIUM 138 mmol/L (136-145)
[2017-06-01 22:51] LABS: PARTIAL THROMBOPLASTIN RATIO 1.1; PROTHROMBIN TIME (PATIENT) 10.7 SECONDS (9.0-12.0)
[2017-06-01 22:53] LABS: ALKALINE PHOSPHATASE 45 U/L (45-117); AST/SGOT 13 U/L (15-37)
[2017-06-01] MEDS ORDERED: BENZ1CAP90 PO (23:08)
[2017-06-01] MEDS ORDERED: TRAM-10 PO (23:08)
[2017-06-01] MEDS ORDERED: HYDR5SYP11 PO (23:08)
--- NOTE | 2017-06-01 23:12 | EMERGENCY ROOM VISIT NOTE ---
History First contact with patient: 21:34 Chief Complaint: RIB PAIN Stated Complaint: R RIB PAIN History of Present Illness The patient is a 22 year old female who presents to the Emergency Room with complaints of persistent nonproductive cough, shortness of breath, fatigue and chest/rib pain, mostly over the right chest wall. The patient reports that she has been sick for the past 2 months. She was here on 05/08/17 and diagnosed with bronchitis. She was provided a prescription for prednisone and albuterol inhaler. She was also given a prescription for a Z-Matthew which she started shortly thereafter because of worsening symptoms. The patient reports that the steroids did provide some relief for a few days, then symptoms came back. The albuterol inhaler was not helping with her symptoms. She was seen 2 days ago at [facility] and provided another prescription for a Z- Matthew and inhaler, and again has had no significant symptoms relief. She has had notable fatigue over the past week. She thinks that her rib pain is from persistent coughing. The patient denies any history of asthma or other pulmonary conditions. She denies any abdominal pain, urinary symptoms or diarrhea. She has had mild nausea and poor appetite. She rates her rib discomfort a 7 out of 10. Review of Systems HEENT: Denies dizziness, visual problems, hearing loss, tinnitus. Denies difficulty swallowing or oral lesions. PULMONARY: See history of present illness. CARDIOVASCULAR: Denies palpitations, dyspnea on exertion, orthopnea or peripheral edema. GASTROINTESTINAL: Denies diarrhea, constipation, vomiting or abdominal pain. GENITOURINARY: Denies dysuria, frequency, urgency or nocturia. NEUROLOGIC: Denies history of epilepsy, CVA, TIA or chronic headaches. MUSCULOSKELETAL: Denies history of joint tenderness/swelling. SKIN: Denies rashes or lesions. PSYCHIATRIC: Denies history of depression or mental illness. ENDOCRINE: Denies history of diabetes or thyroid disorders. Past Medical/Surgical History Medical Problems: (1) Anxiety (2) Bipolar disorder (3) Dysfunctional uterine bleeding (4) Dysfunctional uterine bleeding (5) Endometriosis (6) Facial injury (7) Head injury (8) Right lower quadrant abdominal pain (9) Scalp abrasion (10) UTI (urinary tract infection) (11) UTI (urinary tract infection) Surgical Problems: (1) H/O laparoscopy (2) S/P wisdom tooth extraction Family History FH: cancer FH: diabetes mellitus FH: heart disease FH: hypertension FH: seizures Social History Smoking Status: Never Smoker Alcohol Use: none Drug Use: none Marital Status: single Housing Status: lives with roommate Occupation Status: employed, [employer] student Current/Historical Medications Scheduled Control Pills ( Control Pills), 1 TAB PO DAILY Lamotrigine (Lamictal), 75 MG PO HS Sertraline (Zoloft), 100 MG PO QAM Scheduled PRN Benzonatate (Tessalon Perles), 200 MG PO TID PRN for Cough Hydrocodone W/ Homatropine (Hycodan 5/1.5MG 5 Ml), 5-10 ML PO Q4H PRN for Cough Tramadol (Ultram), 1-2 TAB PO Q4H PRN for Pain Physical Exam Vital Signs Date Time Temp Pulse Resp B/P (MAP) Pulse Ox O2 Delivery O2 Flow Rate FiO2 06/01/17 22:41 83 06/01/17 22:40 92 Room Air 06/01/17 21:30 36.8 92 20 124/78 100 Room Air Physical Exam CONSTITUTIONAL: Healthy and well nourished. Alert and oriented X 3 with positive affect. Patient does not appear acutely or toxic, nor did she appear in any acute respiratory distress. HEENT: Normocephalic, atraumatic. Pupils equal, round and reactive. Ears and nares are clear. No rhinorrhea noted. No scleral icterus or conjunctival injection. NECK: Full active range of motion without discomfort. No nuchal rigidity, Kernig's or Brudzinski sign. LYMPHATICS: The patient has mild posterior cervical chain adenopathy with no anterior adenopathy noted. RESPIRATORY: Clear to auscultation bilaterally with no wheezing, crackles, rhonchi or stridor. CARDIOVASCULAR: Regular rate and rhythm with no murmurs, rubs or gallops. GASTROINTESTINAL: Bowel sounds present in all quadrants. Soft and nontender to palpation. No hepatosplenomegaly. MUSCULOSKELETAL: Full range of motion of all joints without discomfort. INTEGUMENTARY: No rash or other significant dermatologic conditions noted. HEMATOLOGIC: No ecchymosis or petechiae noted. NEUROLOGIC: No focal neurologic deficits noted. Medical Decision & Procedures ER Provider Diagnostic Interpretation: My interpretation of an ECG shows a normal sinus rhythm of [address] elevation or other conduction abnormalities. My interpretation of a two-view chest x-ray does not show any consolidations, pneumothorax or widened mediastinum. Radiologist report is as follows: TWO VIEW CHEST CLINICAL HISTORY: Atypical chest pain. Cough 2 months duration. Dyspnea. FINDINGS: PA and lateral chest radiographs are compared to study dated 05/08/2017. The cardiomediastinal silhouette is unremarkable. The lungs and pleural spaces are clear. There is no pneumothorax. The bony thorax appears intact. Bilateral nipple piercings are noted. IMPRESSION: No active disease in the chest. Laboratory Results 06/01/17 22:15 Red Blood Count 4.04, Mean Corpuscular Volume 96.5, Mean Corpuscular Hemoglobin 32.7, Mean Corpuscular Hemoglobin Concent 33.8, Mean Platelet Volume 10.4, Neutrophils (%) (Auto) 55.3, Lymphocytes (%) (Auto) 34.1, Monocytes (%) (Auto) 6.5, Eosinophils (%) (Auto) 3.6, Basophils (%) (Auto) 0.3, Neutrophils # (Auto) 3.68, Lymphocytes # (Auto) 2.27, Monocytes # (Auto) 0.43, Eosinophils # (Auto) 0.24, Basophils # (Auto) 0.02 06/01/17 22:15 Test 06/01/17 22:15 White Blood Count 6.65 K/uL (4.8-10.8) Red Blood Count 4.04 M/uL (4.2-5.4) Hemoglobin 13.2 g/dL (12.0-16.0) Hematocrit 39.0 % (37-47) Mean Corpuscular Volume 96.5 fL (80-100) Mean Corpuscular Hemoglobin 32.7 pg (25-34) Mean Corpuscular Hemoglobin Concent 33.8 g/dl (32-36) Platelet Count 214 K/uL (130-400) Mean Platelet Volume 10.4 fL (7.4-10.4) Neutrophils (%) (Auto) 55.3 % Lymphocytes (%) (Auto) 34.1 % Monocytes (%) (Auto) 6.5 % Eosinophils (%) (Auto) 3.6 % Basophils (%) (Auto) 0.3 % Neutrophils # (Auto) 3.68 K/uL (1.4-6.5) Lymphocytes # (Auto) 2.27 K/uL (1.2-3.4) Monocytes # (Auto) 0.43 K/uL (0.11-0.59) Eosinophils # (Auto) 0.24 K/uL (0-0.5) Basophils # (Auto) 0.02 K/uL (0-0.2) RDW Standard Deviation 47.7 fL (36.4-46.3) RDW Coefficient of Variation 13.5 % (11.5-14.5) Immature Granulocyte % (Auto) 0.2 % Immature Granulocyte # (Auto) 0.01 K/uL (0.00-0.02) Prothrombin Time 10.7 SECONDS (9.0-12.0) Prothromb Time International Ratio 1.0 (0.9-1.1) Activated Partial Thromboplast Time 27.7 SECONDS (21.0-31.0) Partial Thromboplastin Ratio 1.1 D-Dimer < 190 ug/L FEU (0-500) Anion Gap 4.0 mmol/L (3-11) Est Creatinine Clear Calc Drug Dose 105.8 ml/min Estimated GFR () 123.3 Estimated GFR (Non- 106.4 BUN/Creatinine Ratio 12.3 (10-20) Calcium Level 8.7 mg/dl (8.5-10.1) Total Bilirubin 0.3 mg/dl (0.2-1) Direct Bilirubin < 0.1 mg/dl (0-0.2) Aspartate Amino Transf (AST/SGOT) 13 U/L (15-37) Alanine Aminotransferase (ALT/SGPT) 21 U/L (12-78) Alkaline Phosphatase 45 U/L (45-117) Total Creatine Kinase 74 U/L (26-192) Total Protein 7.1 gm/dl (6.4-8.2) Albumin 3.5 gm/dl (3.4-5.0) Lipase 146 U/L (73-393) Monoscreen NEG (NEG) The above labs were reviewed and were normal. [facility] screen is negative. D- dimer is normal. ED Course Patient history and physical exam were performed. Nurse's notes were reviewed. Vital signs were reviewed, showing that the patient is afebrile and normotensive. O2 saturation is 100% on room air. The patient is not tachycardic. The patient does not appear in any acute distress. As the patient has had symptoms for 2 months without any significant relief, this questions other possible etiologies besides upper respiratory infection. I did suggest performing additional workup, and the patient was in agreement. IV access was established, and labs were drawn. ECG and two-view chest x-ray were normal. Review of labs shows no acute findings. D-dimer and mono are negative. The patient was provided contact information for [facility] pulmonology for further follow-up since she has had this now for 2 months without any significant relief with typical treatments, including 2 courses of antibiotics, corticosteroids and albuterol inhalers. The patient was provided prescriptions for Hycodan cough syrup, Tessalon Perles and Ultram as needed for breakthrough rib pain that's not managed by alternating ibuprofen and Tylenol. The patient has taken tramadol before in the past without any adverse reactions. She is welcome to return to the emergency room for any other further concerning symptoms such as shortness of breath, diaphoresis, developing abdominal pain, neck pain/back pain, headaches or diarrhea. The patient was happy with plan of care, voiced understanding of all discharge instructions, and denied any significant symptoms at the time of discharge. Medical Decision See previous section. The patient has had upper respiratory symptoms now for the past 2 months that has not responded to antibiotics, corticosteroids and inhalers. Her workup today is not suggestive of pulmonary embolus, pneumonia, pneumothorax or specific cardiac etiologies. [place] Drug Monitoring Program Search Results: patient reviewed within database, no issues identified Medication Reconcilliation Current Medication List: was personally reviewed by ak Blood Pressure Screening Patient's blood pressure: Normal blood pressure Impression Primary Impression: Cough present for greater than 3 weeks Additional Impression: Rib pain on right side Departure Information Prescriptions Hydrocodone W/ Homatropine (HYCODAN 5/1.5MG 5 ML) 1 Syp Syp 5-10 ML PO Q4H Y for Cough, #200 ML Prov: Edu Anders PA 06/01/17 Benzonatate (Tessalon Perles) 200 Mg Cap 200 MG PO TID Y for Cough, #30 CAP Prov: Edu Anders PA 06/01/17 Tramadol (Ultram) 50 Mg Tab 1-2 TAB PO Q4H Y for Pain, #20 TAB For Initial Treatment Prov: Edu Anders PA 06/01/17 Referrals No Doctor, Assigned (PCP) Patient Instructions My [facility] Problem Qualifiers
[2017-06-01 23:20] VITALS: PULSE 67; O2SAT 96
== END 2017-06-01 23:15 | disposition home or self-care (01) ==
LOC: C.EDB 21:25 → C.EDC 23:15
DX: R05 Cough (principal); R07.81 Pleurodynia; F31.9 Bipolar disorder, unspecified; F41.9 Anxiety disorder, unspecified; Z87.440 Personal history of urinary (tract) infections; Z87.828 Personal history of other (healed) physical injury and trauma; Z98.890 Other specified postprocedural states; Z79.899 Other long term (current) drug therapy; Z80.9 Family history of malignant neoplasm, unspecified; Z83.3 Family history of diabetes mellitus; Z82.49 Family history of ischemic heart disease and other diseases of the circulatory system; Z82.0 Family history of epilepsy and other diseases of the nervous system